=== PATIENT | male | born 1980 | race Caucasian/White ===

== ENCOUNTER 2016-06-28 23:59 | Emergency (ER) | payer OTHER ==
--- NOTE | ~2016-06-28 | CR142 ---
[facility] A Service of [facility] & [facility] RADIOLOGY TEXT RESULTS PATIENT: VELMA ROMERO LOCATION: [place] : [birth year] UNIT #: [id number] AGE: [address]: STEVE HUMPHRIES SEX: M ORDER DR: [id number] [facility] [address] [place], [place] [address] [id number] E MR#: [id number] Acc #: [id number] NAME: VELMA ROMERO : 1980 SEX: M STUDY DATE/TIME: 06/28/2016 23:44 UNIT: [facility] ROOM: STUDY DESCRIPTION: CR Hand Min 3 Views Rt Attending Physician: Steve Humphries Aprn Ordering Physician: Jeff Steel M.D. Primary Care Physician: Rogelio Mckeon M.D. MEDICAL IMAGING REPORT This report is preliminary unless electronic signature is present EXAM Right hand HISTORY Fall with right hand pain. The patient fell today. No comparison. FINDINGS AP, lateral, and oblique projections of the hand show good mineralization with normal carpal, metacarpal, and phalangeal anatomy without indication of fracture, dislocation, or soft tissue radiopaque foreign body. IMPRESSION Normal hand. Dictated by... John Narayanan M.D. THIS IS AN ELECTRONICALLY VERIFIED REPORT John Narayanan M.D. at 06/29/2016 10:01 PM GINETTE/kyra TD: 06/29/2016 21:23 JOB #: [id number] MEDICAL IMAGING REPORT Page 1 of 1 COPY
[~2016-06-28 23:59] MED LIST: BACTRIM DS TABL1 TA1 PO; EPIPEN0.3 MG/0.1 SUBQ; IBUPROFEN400 MG PO; IBUPROFEN800 MG PO; KEFLEX500 M1 PO; KEFLEX500 MG PO; MINOCYCLINE HC100 M1 PO; MOBIC PO; NO MEDICATIONS; NORCO 7.5-3251 EACH PO; PREDNISONE10 MG PO; TRAMADOL HCL50 M1 PO; VICODIN 5/1 TAB 5/50 PO; VICODIN PO; VOLTAREN75 MG PO; ZOFRAN ODT4 MG PO; ZYRTEC PO
== END 2016-06-29 00:52 | disposition home or self-care (01) ==
LOC: CFTX 23:59
DX: S60.221A Contusion of right hand, initial encounter (principal); B19.20 Unspecified viral hepatitis C without hepatic coma; F17.210 Nicotine dependence, cigarettes, uncomplicated; W22.8XXA Striking against or struck by other objects, initial encounter; Y92.009 Unspecified place in unspecified non-institutional (private) residence as the place of occurrence of the external cause
CPT/HCPCS: 29260; 73130; 99283